=== PATIENT | male | born 1985 | race American Indian/Alaskan Native ===

== ENCOUNTER 2018-02-15 06:16 | Emergency (ER) | payer OTHER ==
[2018-02-15 06:27] VITALS: BP 153/93; PULSE 88; RESP 18; TEMP 98.6; O2SAT 99
--- NOTE | 2018-02-15 06:32 | ED PDOC ---
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 He wiped it off and saw blood on gauze. States did not enter eye or mouth or any other mucus membranes. Forehead skin was intact. Source patient has Hep C which was treated. Past Medical History - Psychiatric Hx Substance Use: No - Surgical History Hx Tonsillectomy: Yes Other/Comment: tubes in ears as a child Family/Social History Family/Social History: No Known Family HX Smoking Status: Never Smoked Hx Alcohol Use: Yes Frequency of alcohol use: Socially Hx Substance Use: No Allergies/Home Meds Allergies/Adverse Reactions: Allergies terbinafine [From Lamisil] Allergy (Verified 02/15/18 06:18) ITCHING Home Medications: Home Meds Medication Instructions Recorded Confirmed No Known Home Med 02/15/18 02/15/18 Review of Systems - Physician Review All systems were reviewed & negative as marked: Yes - Review of Systems Eyes: absent: Vision Changes Respiratory: absent: SOB Physical Exam - Physical Exam Narrative Physical Exam (Text): Gen: NAD Head: NC Skin: Intact forehead skin Neuro: Alert Vital Signs Temp Pulse Resp BP Pulse Ox 02/15/18 06:23 98.6 F 88 18 153/93 H 99 Medical Decision Making ED Course and Treatment: Labs obtained. Patient declined PEP. Disposition/Present on Arrival - Present on Arrival Any Indicators Present on Arrival: No History of DVT/PE: No History of Uncontrolled Diabetes: No Urinary Catheter: No History of Decub. Ulcer: No History Surgical Site Infection Following: None - Disposition Have Diagnosis and Disposition been Completed?: Yes Diagnosis: Employee exposure to blood Disposition: HOME/ ROUTINE Disposition Time: 06:29 Patient Plan: Discharge Condition: STABLE Discharge Instructions (ExitCare): Blood or Body Fluid Exposure Additional Instructions: [facility] Employee Regarding your Work Related Injury, you are instructed to do all of the following by next day: 1. Notify [facility] Employee Health Department of the sustained injury and arrange for any follow-up appointments if needed during the next business day. If the office is closed or no answer is received, please leave a detailed voice message. Message should include your full name, department and geographic information systems manager, date of injury, date of ED visit if applicable. Employee Health can be reached at [phone]. 2. If there is time lost, notify [facility] Human Resources Department of the work related injury the next business day at [phone].
[2018-02-15 06:59] LABS: BASO # 0.08 K/mm3 (0.0-2.0); BASO % 0.7 % (0.0-3.0); EOS # 0.3 (0.0-0.7); EOS % 2.5 % (1.5-5.0); GRAN # 7.27 (1.4-6.5); GRAN % 59.1 % (50.0-68.0); HEMOGLOBIN 16.9 g/dL (14.0-18.0); LYMPH # 3.6 (1.2-3.4); LYMPH % 29.4 % (22.0-35.0); MEAN CORPUSCULAR HEMOGLOBIN 31.4 pg (25.0-35.0); MEAN CORPUSCULAR HGB CONC 35.3 g/dl (31.0-37.0); MEAN PLATELET VOLUME 11.3 fl (7.0-11.0); MONO % 8.3 % (1.0-6.0); RBC 5.38 10^6/uL (3.5-6.1); RED CELL DISTRIBUTION WIDTH 13.1 % (11.5-14.5); WHITE BLOOD COUNT 12.3 10^3/ul (4.5-11.0)
[2018-02-15 07:06] VITALS: BMI 34.3
[2018-02-15 13:06] LABS: HEPATITIS B SURFACE AG Negative (NEGATIVE)
[2018-02-15 13:12] LABS: HEPATITIS A IGM NEGATIVE (NEGATIVE); HEPATITIS B CORE AB NEGATIVE (NEGATIVE)
[2018-02-15 13:24] LABS: HEPATITIS C ANTIBODY NEGATIVE (NEGATIVE)
== END 2018-02-15 07:00 | disposition home or self-care (01) ==
LOC: ED 06:16 → EDUNIT# 06:16 → UNMERGE 06:16 → MERGE 06:16 → ED 07:00
DX: Z77.21 Contact with and (suspected) exposure to potentially hazardous body fluids (principal)